=== PATIENT | male | born 1990 | race Caucasian/White ===

== ENCOUNTER 2023-12-03 01:10 | Emergency (ER) | payer OTHER ==
[2023-12-03 01:34] VITALS: BP 145/83; O2SAT 99
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
[2023-12-03 02:26] LABS: AMPHETAMINE SCREEN,URINE NEGATIVE (NEGATIVE); BARBITURATE SCREEN,UR NEGATIVE (NEGATIVE); BENZODIAZEPINES SCREEN, URINE NEGATIVE (NEGATIVE); BUPRENORPHINE SCREEN, URINE NEGATIVE (NEGATIVE); COCAINE SCREEN URINE NEGATIVE (NEGATIVE); METHADONE SCREEN, URINE NEGATIVE (NEGATIVE); METHAMPHETAMINES SCREEN, URINE NEGATIVE (NEGATIVE); OPIATE SCREEN, URINE NEGATIVE (NEGATIVE); OXYCODONE SCREEN, URINE NEGATIVE (NEGATIVE); THC CANNABINOID SCREEN, URINE POSITIVE (NEGATIVE); TRICYCLIC ANTIDEPRESSANT,URINE POSITIVE (NEGATIVE)
== END 2023-12-03 02:45 | disposition home or self-care (01) ==
LOC: ED 01:10
DX: Z00.8 Encounter for other general examination (principal)
CPT/HCPCS: 80306; 99282; 99283